=== PATIENT | male | born 1940 | race Hispanic/Latino ===

== ENCOUNTER 2022-09-17 16:32 | Emergency (ER) | payer MEDICARE ==
[~2022-09-17] VITALS: Ht 185.4 cm; Wt 87.1 kg
[2022-09-17 17:08] LABS: BASOPHILS % (AUTO) 0.6 % (0.0-5.0); EOSINOPHILS % (AUTO) 1.3 % (0.0-8.0); HEMATOCRIT 43.4 % (42-54); MEAN CORPUSCULAR HEMOGLOBIN 30.9 pg (27.0-33.0); MEAN CORPUSCULAR HGB CONC 33.2 g/dL (32.0-36.0); MEAN CORPUSCULAR VOLUME 93.1 fL (79-99); MONOCYTES % (AUTO) 10.4 % (3.0-13.0); NEUTROPHILS % (AUTO) 62.5 % (40.0-77.0); PLATELET COUNT (AUTO) 196 K/uL (130-400); RED BLOOD CELL COUNT(AUTO) 4.66 MIL/uL (4.50-6.20); RED CELL DISTRIBUTION WIDTH 13.5 % (11.0-15.5); WHITE BLOOD COUNT (AUTO) 6.3 K/uL (4.8-10.8)
[2022-09-17 17:15] LABS: CREATININE 0.8 mg/dL (0.5-1.5); POTASSIUM 4.3 mmol/L (3.5-5.1)
[2022-09-17 17:20] LABS: ALBUMIN 3.8 g/dL (3.5-5.0); TOTAL PROTEIN, SERUM 7.2 g/dL (6.0-8.3)
[2022-09-17] MEDS ORDERED: PREDNISONE 20 MG TABLET PO ONE (17:30)
[2022-09-17] MEDS ORDERED: FAMOTIDINE 20MG TAB PO ONE (17:30)
[2022-09-17] MEDS ORDERED: DIPHENHYDRAMINE HCL 25 MG CAPSULE PO ONE (17:30)
[2022-09-17 19:39] LABS: APPEARANCE,URINE CLEAR (CLEAR); BILIRUBIN,URINE NEGATIVE (NEGATIVE); COLOR,URINE LIGHT-YELLOW (YELLOW); GLUCOSE, URINE (UA) NEGATIVE (NEGATIVE); KETONES,URINE NEGATIVE (NEGATIVE); LEUKOCYTE ESTERASE ,URINE NEGATIVE Leu/uL (NEGATIVE); NITRATE,URINE NEGATIVE (NEGATIVE); OCCULT BLOOD,URINE NEGATIVE (NEGATIVE); PH,URINE 5.5 (5.0-8.0); PROTEIN,URINE NEGATIVE (NEGATIVE); UROBILINOGEN,URINE 0.2 mg/dL (0.2-1.0)
[2022-09-17] MEDS ORDERED: HYDR28CR51 TP (20:02)
[2022-09-17 20:11] VITALS: BP 142/82
== END 2022-09-17 20:23 | disposition home or self-care (01) ==
LOC: EDH 16:32
DX: R21 Rash and other nonspecific skin eruption (principal); R10.9 Unspecified abdominal pain; E78.00 Pure hypercholesterolemia, unspecified; E03.9 Hypothyroidism, unspecified; Z20.822 Contact with and (suspected) exposure to COVID-19
CPT/HCPCS: 99285; 71045; 87635; 84484; 80053; 85025; 87880; 87804 ×2; 81003; 36415; 72170; 93005; Q0163; C9803

== ENCOUNTER 2023-08-08 16:23 | Emergency (ER) | payer MEDICARE ==
[~2023-08-08] VITALS: Ht 180.3 cm; Wt 86.2 kg
[~2023-08-08 16:23] MED LIST: HYDR28CR51 TP
[2023-08-08 19:46] VITALS: BP 110/65; PULSE 65; RESP 16; O2SAT 97
== END 2023-08-08 19:47 | disposition home or self-care (01) ==
LOC: EDH 16:23
DX: S02.2XXA Fracture of nasal bones, initial encounter for closed fracture (principal); S80.211A Abrasion, right knee, initial encounter; E78.00 Pure hypercholesterolemia, unspecified; W18.39XA Other fall on same level, initial encounter; Y93.89 Activity, other specified; Y92.89 Other specified places as the place of occurrence of the external cause; Y99.8 Other external cause status
CPT/HCPCS: 70450; 70486; 72125; 73562